=== PATIENT | male | born 1955 | race Caucasian/White ===

== ENCOUNTER → 2023-12-18 15:03 | Outpatient (REF) | payer MEDICARE, OTHER, SELFPAY | LOC: HWRAD 15:03 | PROVIDERS: ATTENDING PHYSICIAN Internal Medicine Pulmonary Disease; FAMILY PHYSICIAN Student in an Organized Health Care Education/Training Program | DX: J45.30 Mild persistent asthma, uncomplicated (principal) | CPT/HCPCS: 71046 ==